=== PATIENT | female | born 1960 | race Caucasian/White ===

== ENCOUNTER 2017-07-03 07:36 | Emergency (ER) | payer BC ==
[2017-07-03] MEDS ORDERED: diphenhydrAMINE 50 MG/ML VIAL ONE (08:21)
[2017-07-03] MEDS ORDERED: EPINEPHrine 1 MG/ML AMP ONE (08:21)
[2017-07-03] MEDS ORDERED: methylPREDNISolone Sod Succ/PF 125 MG/2 ML VIAL ONE (08:22)
[2017-07-03] MEDS ORDERED: Famotidine In NaCl 20 mg/50 ml Premix Bag ONE (08:22)
== END 2017-07-03 09:22 | disposition home or self-care (01) ==
LOC: MADERS 07:36
DX: T78.3XXA Angioneurotic edema, initial encounter (principal); E11.9 Type 2 diabetes mellitus without complications; E78.5 Hyperlipidemia, unspecified; I10 Essential (primary) hypertension; F17.210 Nicotine dependence, cigarettes, uncomplicated; Z79.84 Long term (current) use of oral hypoglycemic drugs; Z79.899 Other long term (current) drug therapy
CPT/HCPCS: 96372; 96374; 96375; J0171; J1200; J2930